=== PATIENT | male | born 1970 | race Caucasian/White ===

== ENCOUNTER 2019-05-12 13:09 | Outpatient (REF) | payer MEDICARE, SELFPAY ==
[2019-05-12 21:44] LABS: Abs Immature Grans 0.04 k/cumm (0.0-0.09); Absolute Eosinophil Count 0.48 k/cumm (0.0-0.7); Absolute Monocyte Count 1.05 k/cumm (0.11-0.7); Basophils % 0.2; Eosinophils % 2.9; HCT 43.4 % (40.0-50.0); HGB 14.4 g/dL (13.5-17.5); Immature Grans % 0.2 %; Lymphocytes % 16.4; Mean Corp. HGB Concentration 33.2 g/dL (32.0-36.0); Mean Corpuscular Hemoglobin 30.7 pg (27.0-33.0); Mean Corpuscular Volume 92.5 fL (80-95); Monocytes % 6.4; Neutrophils % 73.9; Platelet Count 455 x1000/uL (130-400); RBC 4.69 m/cumm (4.50-6.00); RBC Distribution Width 12.6 % (11.8-14.1); White Blood Cell Count 16.45 k/cumm (4.4-10.8)
[2019-05-12 21:56] LABS: ALT 22 U/L (16-63); AST 17 U/L (15-37); Albumin 3.5 g/dL (3.4-5.0); Alkaline Phosphatase 126 U/L (46-116); BUN 10 mg/dL (7-18); Bilirubin, Total 0.3 mg/dL (0.2-1.0); C-Reactive Protein 5.83 mg/dL (0.0-0.3); CREATININE 0.86 mg/dL (0.70-1.30); Calcium 8.9 mg/dL (8.5-10.1); Chloride 101 mmol/L (98-107); Glucose 96 mg/dL (74-106); Potassium 4.4 mmol/L (3.5-5.1); Sodium 137 mmol/L (136-145); TSH 0.59 uIU/mL (0.36-3.74)
[2019-05-12 22:16] LABS: Absolute Basophil Count 0.03 k/cumm (0.0-0.2); Absolute Neutrophil Count 12.16 k/cumm (1.2-6.7)
[2019-05-12 23:10] LABS: ESR 42 mm/hr (0-15)
[2019-05-14 11:10] LABS: Cyclic Citrullinated Peptide <2.5 U/mL (<5.0)
[2019-05-14 11:29] LABS: Lyme Ab w Rflx to Lyme Confirm Negative (Negative)
[2019-05-14 14:59] LABS: ANA Interpretation Positive (Negative); ANA Titer Pattern 1:320 Speckled
[2019-05-15 19:12] LABS: Anaplasma phagocytophilum Negative (Negative); B. miyamotoi PCR Negative (Negative); Babesia divergens/MO-1 Negative (Negative); Babesia duncani Negative (Negative); Babesia microti Negative (Negative); Ehrlichia chaffeensis Negative (Negative); Ehrlichia ewingii/canis Negative (Negative); Ehrlichia muris eauclairensis Negative (Negative)
== END 2019-05-12 13:29 ==
LOC: NCHCN 13:09
PROVIDERS: Visit Provider Nurse Practitioner Family
DX: R53.83 Other fatigue (principal); M54.5 Low back pain; M25.50 Pain in unspecified joint; M25.511 Pain in right shoulder
CPT/HCPCS: 80053; 85652; 86200; 87798; 84443; 85025; 86038; 86140; 86618

== ENCOUNTER 2019-05-20 11:11 | Outpatient (REF) | payer MEDICARE, SELFPAY ==
[2019-05-20 21:58] LABS: C-Reactive Protein 3.08 mg/dL (0.0-0.3)
[2019-05-20 22:06] LABS: ESR 56 mm/hr (0-15)
== END 2019-05-20 11:31 ==
LOC: NCHCN 11:11
PROVIDERS: Visit Provider Nurse Practitioner Family
DX: M25.50 Pain in unspecified joint (principal)
CPT/HCPCS: 85652; 86140